=== PATIENT | female | born 1945 | race Two or more races ===

== ENCOUNTER → 2020-04-12 | Outpatient (CLI) | payer MEDICARE ==
[~2020-04-12] MED LIST: ATOR80TA PO; FOLI0.8T7 PO; GABA100C PO; HYDR-3342 PO; OMEP-110 PO; PIOG15TA66 PO; WARF2.5T32 PO
[2020-04-12 10:38] LABS: BASOPHILS % (AUTO) 1 % (0-1); EOSINOPHILS % (AUTO) 3 % (1-7); LYMPHOCYTES % (AUTO) 17 % (22-44); MEAN CORPUSCULAR HEMOGLOBIN 31.7 pg (27.0-34.8); MEAN CORPUSCULAR HGB CONC 33.7 g/dL (32.4-35.8); MEAN PLATELET VOLUME 8.4 fL (7.4-10.4); MONOCYTES % (AUTO) 7 % (2-9); NEUTROPHILS % (AUTO) 72 % (42-75); PLATELET COUNT 200 x10^3/uL (130-400); RED BLOOD COUNT 3.61 x10^6/uL (3.82-5.3); RED CELL DISTRIBUTION WIDTH 14.2 % (9.6-15.2)
[2020-04-12 10:40] LABS: MD NO
[2020-04-12 10:43] LABS: INTERNATIONAL NORMALIZED RATIO 2.12 (0.93-1.1); PROTHROMBIN TIME 22.3 Seconds (9.6-11.5)
[2020-04-12 10:45] LABS: ALBUMIN 3.6 g/dL (3.4-5.0); ANION GAP 5 mmol/L (5-15); CALCIUM 9.1 mg/dL (8.5-10.1); CHLORIDE 106 mmol/L (98-107)
[2020-04-12 10:49] LABS: ALANINE AMINOTRANSFERASE 23 U/L (12-78); ALKALINE PHOSPHATASE 228 U/L (45-117); BILIRUBIN,TOTAL 0.5 mg/dL (0.2-1.0); CREATININE 4.28 mg/dL (0.55-1.02); TOTAL PROTEIN 7.3 g/dL (6.4-8.2)
== END | disposition home or self-care (01) ==
LOC: STAR 08:03 → MERGE 09:00 → UNMERGE 09:00
PROVIDERS: ATTEND Surgery
DX: Z01.818 Encounter for other preprocedural examination (principal); L98.8 Other specified disorders of the skin and subcutaneous tissue; I25.2 Old myocardial infarction; Z20.828 Contact with and (suspected) exposure to other viral communicable diseases
CPT/HCPCS: 71046; 80053; 85025; 85610; 85730; 87635; 93005

== ENCOUNTER 2020-04-16 05:23 | Day surgery (SDC) | payer MEDICARE, MEDICAID ==
[~2020-04-16] VITALS: Ht 154.9 cm; Wt 58.7 kg
[2020-04-16] MEDS ORDERED: SODIUM CHLORIDE 0.9% 1,000 ML IV SCH (06:30)
[2020-04-16] MEDS ORDERED: CHLORHEXIDINE 15 ML UDC MM ONE (06:30)
[2020-04-16 06:45] LABS: INTERNATIONAL NORMALIZED RATIO 1.09 (0.93-1.1); PROTHROMBIN TIME 11.5 Seconds (9.6-11.5)
[2020-04-16] MEDS ORDERED: FENTANYL PF 100 MCG/2ML ONE (07:10)
[2020-04-16] MEDS ORDERED: LIDOCAINE-MPF 2% ,5ML ONE (07:16)
[2020-04-16] MEDS ORDERED: SODIUM CHLORIDE 0.9% PF 10ML ONE (07:16)
[2020-04-16] MEDS ORDERED: FENTANYL PF 100 MCG/2ML IV PRN (07:30)
[2020-04-16] MEDS ORDERED: LABETALOL 5MG/ML, 20ML IV PRN (07:30)
[2020-04-16] MEDS ORDERED: OXYcodone 5 MG/5 ML ORAL.SOL UDC PO PRN (07:30)
[2020-04-16] MEDS ORDERED: ONDANSETRON 2MG/ML, 2ML IVPush PRN (07:30)
[2020-04-16] MEDS ORDERED: HYDROmorphone 1 MG/ML, 1ML INJ IVPush PRN (07:30)
[2020-04-16] MEDS ORDERED: EPHEDRINE 50 MG/ML, 1ML IVPush PRN (07:30)
[2020-04-16] MEDS ORDERED: PROMETHAZINE 25 MG/ML, 1ML IVPush PRN (07:30)
[2020-04-16] MEDS ORDERED: hydrALAzine 20 MG/ML, 1ML IV PRN (07:30)
[2020-04-16] MEDS ORDERED: ACETAMINOPHEN 325 MG TABLET PO PRN (07:30)
[2020-04-16] MEDS ORDERED: DEXAMETHASONE 4 MG/ML, 1ML ONE (07:38)
[2020-04-16] MEDS ORDERED: PROPOFOL 10 MG/ML, 20ML ONE (07:52)
[2020-04-16] MEDS ORDERED: ONDANSETRON 2MG/ML, 2ML ONE (07:52)
[2020-04-16] MEDS ORDERED: CEFAZOLIN 1,000 MG ONE (07:52)
[2020-04-16] MEDS ORDERED: EPHEDRINE 50 MG/ML, 1ML ONE ×2 (07:53)
== END 2020-04-16 10:40 | disposition home or self-care (01) ==
LOC: OUT 05:23 → MERGE 07:30 → UNMERGE 07:30 → OUT 10:40
PROVIDERS: ATTEND Surgery
DX: E11.21 Type 2 diabetes mellitus with diabetic nephropathy (principal); I12.0 Hypertensive chronic kidney disease with stage 5 chronic kidney disease or end stage renal disease; N18.6 End stage renal disease; I82.C21 Chronic embolism and thrombosis of right internal jugular vein; Z90.710 Acquired absence of both cervix and uterus; Z98.890 Other specified postprocedural states; E11.22 Type 2 diabetes mellitus with diabetic chronic kidney disease; Z79.899 Other long term (current) drug therapy; Z79.01 Long term (current) use of anticoagulants; E78.5 Hyperlipidemia, unspecified
CPT/HCPCS: 36821; 82962; 85610; 85730; J0690; J1100; J2405; J2704; J3010; J7030